=== PATIENT | female | born 1985 | race Caucasian/White ===

== ENCOUNTER 2022-03-27 15:29 | Emergency (ER) | payer OTHER ==
[2022-03-27 17:25] LABS: BASOPHIL 0.9 % (0-2); EOSINOPHIL 1.7 % (0-5); HCT 43.8 % (37.0-47.0); HGB 14.5 g/dl (12.5-16.0); MCHC 33.1 g/dL (32.0-36.0); MCV 84.6 fL (78.0-100.0); MONOCYTE 9.5 % (0-12); MPV 9.2 fL (6.0-9.5); NEUTROPHIL 65.3 % (41-80); NRBC 0; PLT 252 K/uL (150-400); RBC 5.18 M/uL (4.20-5.40); RDW 12.8 % (11.5-14.0); WBC 7.1 K/uL (4.0-10.5)
[2022-03-27 17:37] LABS: CREATININE 1.07 mg/dL (0.51-0.95)
[2022-03-27] MEDS ORDERED: MEDROL 4MG DOSEP4 MG PO (17:56)
== END 2022-03-27 18:05 | disposition home or self-care (01) ==
LOC: FER 15:29
PROVIDERS: Nurse Practitioner Family
DX: T78.1XXA Other adverse food reactions, not elsewhere classified, initial encounter (principal); J39.2 Other diseases of pharynx
CPT/HCPCS: 36415; 80048; 84484; 85025; 93005; 94640; 94664; J1100; J1200; J2405; J7030